=== PATIENT | female | born 1990 | race Caucasian/White ===

== ENCOUNTER 2018-01-24 04:39 | Inpatient (IN) ==
[2018-01-23 22:05] LABS: Bilirubin,Urine Negative (Negative); Blood,Urine Negative (Negative); Clarity,Urine Clear (Clear); Color,Urine Yellow (Yellow); Glucose,Urine (UA) Normal (Normal); Ketones,Urine Negative (Negative); Leukocyte Esterase,Urine Trace (Negative); Nitrite,Urine Negative (Negative); Protein,Urine Negative (Neg-Trace); Specific Gravity,Urine 1.012 (1.010-1.025); Urobilinogen,Urine Normal (Normal)
[2018-01-23 22:07] LABS: Bacteria,Urine None Seen per hpf (None-Few); Hyaline Casts,Urine None Seen per lpf (None-Few); RBC,Urine 0-3 per hpf (0-3); Squamous Epithelial Cell,Urine Many per lpf (None-Few)
[2018-01-23 22:14] LABS: Amphetamine Screen,Urine Negative ng/mL (Cutoff=1000); Barbiturate Screen,Urine Negative ng/mL (Cutoff=200); Benzodiazepines Screen,Urine Negative ng/mL (Cutoff=200); Cannabinoid Screen,Urine Negative ng/mL (Cutoff = 50); Cocaine Screen,Urine Negative ng/mL (Cutoff= 300); Opiate Screen,Urine Negative ng/mL (Cutoff=300); Phencyclidine Screen,Urine Negative ng/mL (Cutoff=25)
--- NOTE | 2018-01-24 00:30 | OB/GYN History & Physical ---
Date of Encounter: 01/24/18 Time of Encounter: 00:09 Assessment and Plan (1) 36 weeks gestation of Current visit: Yes Status: Acute (2) Breech presentation of fetus Current visit: Yes Status: Acute Upon making cervical change, patient found to be breech on ultrasound. Admit to labor and delivery for stat section Qualifiers: Fetus number: single or unspecified fetus Qualified Code(s): O32.1XX0 - Maternal care for breech presentation, not applicable or unspecified History of Present Illness Chief complaint: Contractions HPI: Ms. Martinez is a 27 year old female presented to triage with contractions. Contractions started this afternoon, reports good movement and bloody show , denies vaginal bleeding. On initial admission patient's cervix was closed, now 4 cm and found to be in breech presentation. care with Dr. Mazariegos. complicated with pica, found to be anemic. Patient with history of herpes, Otherwise uncomplicated course. Labs: O-, rubella and varicella immune, GBS unknown Past Med Surg Social Fam HX - Past Medical History Medical history: no medical history Additional medical history: herpes - anemia Psychiatric history: anxiety - Past Surgical History Surgical History: cholecystectomy Additional surgical history: dental - Social History Smoking Status: Never smoker Smokeless Tobacco Status: No Alcohol use: none Drug use: none - Family History Mother Living Status: Still Living Obstetrical History - Pregnancies : 4 Para: 3 Term: 1 : 2 Ab's: 0 Livin Medications and Allergies Ferrous Sulfate [Iron] 325 mg PO BID 01/23/18 [History] Vit #108/Iron/FA [ One Tablet] 1 each PO DAILY 01/23/18 [ History] 3 Allergy/AdvReac Type Severity Reaction Status Date / Time No Known Allergies Allergy Verified 01/23/18 21:49 Exam - Constitutional Constitutional: well developed, well nourished, no acute distress, average body habitus - Neck Neck exam: full ROM - Lungs Respiratory exam: CTAB - Cardiovascular Cardiovascular exam: RRR - Abdomen Abdomen: Present: gravid, non tender - Vulva Vulva: bilateral: normal - Vagina Vagina: Present: normal moisture - Cervix Dilation: 4 Station: -2 - Anus/Rectum Anus/Rectum: Present: normal perianal skin Results Abnormal lab results Ur Leukocyte Esterase Trace (Negative) H 01/23/18 21:45 Urine Microscopic WBC 3-5 per hpf (0-3) H 01/23/18 21:45 Ur Squamous Epith Cells Many per lpf (None-Few) H 01/23/18 21:45 Ur Culture Indicated? NO. (NO) A 01/23/18 21:45 All other labs normal. - VTE Reasons for not Prescribing Prophylaxis: Treatment not Indicated - Low risk for VTE
--- NOTE | 2018-01-24 00:38 | Anesthesia Evaluation PreOp ---
Date of Encounter: 01/24/18 Time of Encounter: 00:36 - Past History Planned Operation: csection/spinal Cardiac History: Denies any Significant Hx Pulmonary History: Denies Any Significant HX WASHING TUB OPERATOR History: Denies Any Significant HX Other Medical History: Denies Any Significant HX, Other (anemia) Anesthesia History: No Prior Anesthetic Complications, Past Anesthesia (lap jarrett, wisdom teeth) : Yes Alcohol Use: none Drug use: none Medications and Allergies Ferrous Sulfate [Iron] 325 mg PO BID 01/23/18 [History] Vit #108/Iron/FA [ One Tablet] 1 each PO DAILY 01/23/18 [ History] 3 Allergy/AdvReac Type Severity Reaction Status Date / Time No Known Allergies Allergy Verified 01/23/18 21:49 - Meds/Allergy Pre-op Review Medications Reviewed: Yes Allergies Reviewed: Yes Beta Blockers on Current Med List: No Anesthesia Exam BP 130/77 P 96 R 16 T 98.3 Height: 5'3" Weight: 103.5kg NPO (# of Hours): 5 Pain Scale: 4 Pain Scale Used: Numeric (1 - 10) - HEENT Pupil (Motor): Pupils equal Mallampati: II Teeth: Normal Oral Opening: Greater than 3 - WASHING TUB OPERATOR LOC: Oriented WASHING TUB OPERATOR Motor: Normal RUE, Normal LUE, Normal RLE, Normal LLE, Normal Face WASHING TUB OPERATOR Sensory: Normal: RUE, LUE, RLE, LLE, Face - Cardiac Rhythm: Regular Murmur: None JVD: No Carotid Bruit: No - Pulmonary Breath Sounds: bilateral Clear Respiratory Effort: Symmetrical Anesthesia Assess/Plan ASA Score: 2 Modified Sada Scale for Level of Consciousness: Cooperative, oriented, and tranquil Anesthetic Plan: Regional Autologous Blood: Yes Monitoring Plan: Standard Monitors Recovery Plan: PACU
[2018-01-24 00:46] LABS: Basophils % 0.3 %; Eosinophils # 0.1 K/mcL (0.0-0.6); Hematocrit 31.5 % (35.3-44.9); Hemoglobin 10.9 g/dL (11.5-15.4); Immature Granulocytes % 1.1 % (0-4); Lymphocytes # 1.8 K/mcL (0.6-4.6); Lymphocytes % 13.1 %; Mean Corpuscular HGB Conc 34.6 g/dL (31.6-35.5); Mean Corpuscular Hemoglobin 29.3 pg (28.0-33.3); Mean Corpuscular Volume 84.7 fL (83.0-100.0); Mean Platelet Volume 9.5 fL (9.4-12.4); Monocytes # 0.7 K/mcL (0.0-1.3); Neutrophils # 11.1 K/mcL (1.6-8.9); Nucleated Red Blood Cells 0.1 /100 WBC (0); Platelet Count 232 K/mcL (140-400); Red Blood Count 3.72 M/mcL (3.82-4.97); Red Cell Distribution Width 14.3 % (11.5-14.5); Segmented Neutrophils % 79.5 %
--- NOTE | 2018-01-24 01:57 | Anesthesia Procedures ---
Date of Encounter: 01/24/18 Time of Encounter: 01:20 Procedures: Anesthesia - Epidural/Spinal Patient ID/Chart reviewed: Yes Patient examined: Yes OB Eval: Gestational age: 36 OB Eval: : 4 OB Eval: Hx Para: 3 OB Eval: Dilated at (cm): 4 OB Eval: Contractions: Non-stressed pattern Consent Obtained: Yes Supplemental Oxygen: None/Room Air Site Prep: Aseptic Technique, Sterile prep and drape, Povidone-Iodine 1% Patient position: upright Local Anesthetic: Lidocaine 1% Amount of Local Anesthetic used: 3 Interspace Used: L4-L5 Blood: No CSF: Yes Paresthesia: No Spinal Needle Gauge: Other Spinal Dose: Bupivicaine 0.75% 1.6ml Morphine 250mcg Procedure: Intrathecal dose administered first pass in upright position without any immediate noted complications. VSS throughout. Vitals + FHT's: See anesthesia OR record
--- NOTE | 2018-01-24 02:40 | OB/GYN Procedure Note ---
Section - Date of procedure: 01/24/18 Preop diagnosis: breech Post-op diagnosis: same (Double footling breech) Procedure: primary low transverse Surgeon: Corey Garcia Blood Loss: 950 Was there an assistant manager retail present: No Anesthesiologist: Candace Parada Anesthesia Type: Spinal section complications: none Disposition: PACU Specimens: Placenta - Infant (s) A Infant Delivery Date: 01/24/18 Delivery Time: 01:43 Presentation: footling breech Gender: Female Viability: Viable Pounds: 6 Ounces: 6 at 1 minute: 9 at 5 minutes: 9 Specimens collected: cord blood Placenta: complete extraction - Narrative Narrative: Patient was taken to the operating room. After satisfactory spinal anesthesia was achieved, patient placed in supine position, Varner catheter inserted, and prepped and draped in usual manner. After appropriate timeout, the abdomen was entered through standard Maylard incision. The Wellington retractor was placed. The peritoneum overlying the lower uterine segment was incised in the U-shaped fashion. Uterine cavity was entered sharply and extended laterally. Membranes ruptured yielding clear fluid. Double footling breech was noted. The legs followed by the torso followed by the arms and head were delivered without difficulty. The umbilical cord was double clamped and cut and the was given to nursery staff for further evaluation. Placenta was removed. Uterus was closed with 0 Monocryl . After assurance of hemostasis, the retractor was removed. The abdomen was closed using a's 0 Vicryl on the fascia and a 3-0 Monocryl in the skin. Sterile dressing was applied. Patient did well was taken to recovery room in satisfactory condition. Counts were correct.
--- NOTE | 2018-01-24 03:42 | Anesthesia Evaluation Post Op ---
Date of Encounter: 01/24/18 Time of Encounter: 03:41 - Vital Signs Vital Signs: BP 126/51 P 95 R 16 T 97.9 - Lungs Lungs: Clear Ascult./Percussion - Airway Airway: Non-obstructed - Cardiovascular Regular Rate - Mental Status Mental Status: Alert & Oriented, Answers Appropriately - Pain Pain Scale: 5 (responding to IV and Oral medication as needed) Pain Scale used: Numeric (1 - 10) - Nausea Vomiting Nausea Vomiting: Not Present - Hydration Hydration: NPO, Varner catheter - Discharge PostOp Status: Transfer Patient to floor
[~2018-01-24 04:39] MED LIST: *HR* Meperidine 25 MG/ML SYRINGE IVP PRN; *HR* OxyCODONE Immed Rel 5 MG TABLET PO PRN; *HR* Oxytocin 10 UNIT/ML VIAL IM ONE; *HR* Promethazine 25 MG/ML VIAL IVP PRN; Acetaminophen IV 1,000 MG/100 ML INFUS..BTL IVPB ONE; Bupivacaine/PF 0.75% in Dex 2 ML AMPUL INFILT ONE; CeFAZolin Premix DUPLEX 2,000 MG/50 ML BAG IVPB ONE; Dexamethasone 4 MG/ML VIAL ONE; EPHEDrine 50 MG/ML VIAL ONE; Famotidine 20 MG/2 ML VIAL IVP ONE; Lidocaine -MPF 1% 5 ML AMPUL ONE; Metoclopramide 10 MG/2 ML VIAL IVP ONE; Morphine Sulfate/PF 5mg/10mL Vial ONE; Naloxone 0.4 MG/ML INJ IVP PRN; Ondansetron 4 MG/2 ML VIAL IVP ONE; Ondansetron 4 MG/2 ML VIAL ONE; Oxytocin 20 units/ LR 1000 mL 20 UNIT/1,000 ML BAG IVC ONE; Oxytocin 20 units/ LR 1000 mL 20 UNIT/1,000 ML BAG IVC SCH; Ringers Solution, Lactated 1,000 ML IVC ONE; Ringers Solution, Lactated 1,000 ML IVC SCH; Ringers Solution, Lactated 1,000 ML ONE
[2018-01-24] MEDS ORDERED: Oxytocin 20 units/ LR 1000 mL 20 UNIT/1,000 ML BAG IVC SCH (04:43)
[2018-01-24] MEDS ORDERED: Metoclopramide 10 MG/2 ML VIAL IVP PRN (04:43)
[2018-01-24] MEDS ORDERED: Acetaminophen 325 MG TABLET PO PRN (04:43)
[2018-01-24] MEDS ORDERED: Rho Immune Globulin 1,500 UNIT SYRINGE IM ONE (04:43)
[2018-01-24] MEDS ORDERED: Sennosides 8.6 MG TABLET PO PRN (04:43)
[2018-01-24] MEDS ORDERED: Ondansetron 4 MG/2 ML VIAL IVP PRN (04:43)
[2018-01-24] MEDS ORDERED: Simethicone 80 MG TAB.CHEW PO PRN (04:43)
[2018-01-24] MEDS: Prenatal Vit/FA 1 EACH TABLET PO SCH (08:06)
[2018-01-24] MEDS ORDERED: Prenatal Vit/FA 1 EACH TABLET PO SCH (09:00)
[2018-01-24] MEDS: *HR* OxyCODONE/APAP 5/325 TABLET PO PRN ×2 (14:14→19:57)
[2018-01-24] MEDS: Ibuprofen 600 MG TABLET PO PRN ×2 (16:06→23:50)
[2018-01-25] MEDS: *HR* OxyCODONE/APAP 5/325 TABLET PO PRN ×2 (05:41→15:21)
[2018-01-25 06:41] LABS: Basophils # 0.1 K/mcL (0.0-0.2); Basophils % 0.4 %; Eosinophils # 0.3 K/mcL (0.0-0.6); Eosinophils % 2.1 %; Hematocrit 26.2 % (35.3-44.9); Hemoglobin 8.6 g/dL (11.5-15.4); Immature Granulocytes % 1.6 % (0-4); Lymphocytes # 2.3 K/mcL (0.6-4.6); Lymphocytes % 19.1 %; Mean Corpuscular HGB Conc 32.8 g/dL (31.6-35.5); Mean Corpuscular Hemoglobin 28.5 pg (28.0-33.3); Mean Corpuscular Volume 86.8 fL (83.0-100.0); Mean Platelet Volume 9.2 fL (9.4-12.4); Monocytes # 0.6 K/mcL (0.0-1.3); Monocytes % 5.2 %; Neutrophils # 8.6 K/mcL (1.6-8.9); Platelet Count 201 K/mcL (140-400); Red Blood Count 3.02 M/mcL (3.82-4.97); Red Cell Distribution Width 14.6 % (11.5-14.5); Segmented Neutrophils % 71.6 %
[2018-01-25] MEDS: Prenatal Vit/FA 1 EACH TABLET PO SCH (08:37)
[2018-01-25] MEDS: Ibuprofen 600 MG TABLET PO PRN ×2 (08:37→19:34)
--- NOTE | 2018-01-25 10:16 | OB/GYN Progress Note ---
Date of Encounter: 01/25/18 Time of Encounter: 10:13 - Assessment and Plan (1) Status post primary low transverse section Current Visit: Yes Status: Acute Pain well controlled with by mouth pain meds Continue routine care Anticipate discharge home tomorrow (2) anemia Current Visit: Yes Status: Acute Increase iron to twice daily (3) Breast feeding status of mother Current Visit: Yes Status: Acute as needed Subjective - Subjective Principal diagnosis: s/p PLTCS for breech Patient reports: appetite normal, voiding normally, pain well controlled, ambulating normally : doing well, nursing well Objective - Vital Signs Latest vital signs: Vital Signs Temp Pulse Resp BP Pulse Ox 01/25/18 07:30 97.9 F 86 16 114/80 01/24/18 23:35 97.6 F 88 14 108/68 98 01/24/18 19:20 98.1 F 88 16 112/74 97 01/24/18 16:23 97.8 F 82 20 113/74 01/24/18 11:37 98.1 F 91 16 112/76 Intake and Output 01/24/18 01/25/18 01/25/18 23:59 07:59 15:59 Intake Total 900 / 900 240 / 240 Output Total 1275 / 1275 1150 / 1150 Balance -1275 / -1275 -250 / -250 240 / 240 Intake: Oral 900 / 900 240 / 240 Output: Urine 1275 / 1275 1150 / 1150 Other: Meal Breakfast Percent of Meal Consumed 100% Weight 103 kg Patient Weight 01/25/18 23:59 Weight 103 kg - Exam Lungs: bilateral: normal Chest: Normal S1, Normal S2 Extremities: Present: normal Abdomen: Present: normal appearance, soft, gravid Incision: Present: normal, dry, dressed Uterus: Present: normal, firm Fundal Height: 0 (midline) - Labs Labs: Laboratory Results - last 24 hr 01/24/18 01/25/18 03:14 06:23 WBC 12.0 H RBC 3.02 L Hgb 8.6 L D Hct 26.2 L MCV 86.8 MCH 28.5 MCHC 32.8 RDW 14.6 H Plt Count 201 MPV 9.2 L Immature Gran % 1.6 Seg Neutrophils % 71.6 Lymphocytes % 19.1 Monocytes % 5.2 Eosinophils % 2.1 Basophils % 0.4 Neutrophils # 8.6 Lymphocytes # 2.3 Monocytes # 0.6 Eosinophils # 0.3 Basophils # 0.1 Rhogam Indicated NO
[2018-01-26] MEDS: *HR* OxyCODONE/APAP 5/325 TABLET PO PRN (07:00)
[2018-01-26 07:43] VITALS: BP 125/83
--- NOTE | 2018-01-26 08:19 | Discharge Summary ---
Date of Encounter: 01/26/18 Time of Encounter: 08:16 - Discharge Diagnosis (1) Status post primary low transverse section Priority: Primary Status: Acute Comments: Pain well controlled with by mouth pain meds Tolerating regular diet Voiding independently Passing flatus, but no BM yet Lochia light Vital signs stable Ambulating independently Discharge home today (2) anemia Priority: Secondary Status: Acute Comments: Continue iron twice daily (3) Breast feeding status of mother Priority: Secondary Status: Acute Comments: resources provided - Discharge Medications Prescriptions: OxyCODONE/APAP 5/325 [Percocet 5/325 MG] 1 each PO Q4HR PRN 5 Days #30 tablet PRN Reason: Moderate pain 4-6 Ibuprofen [Motrin] 600 mg PO Q6HR PRN #30 tablet PRN Reason: Cramping Docusate [Colace] 100 mg PO BID #60 capsule Ferrous Sulfate [Iron] 325 mg PO BID #60 tablet Home Medications: Vit #108/Iron/FA [ One Tablet] 1 each PO DAILY 01/23/18 [ History] Acetaminophen [Tylenol] 325 mg PO Q6HR PRN tablet 01/26/18 [Rx] Docusate [Colace] 100 mg PO BID #60 capsule 01/26/18 [Rx] Ferrous Sulfate [Iron] 325 mg PO BID #60 tablet 01/26/18 [Rx] Ibuprofen [Motrin] 600 mg PO Q6HR PRN #30 tablet 01/26/18 [Rx] OxyCODONE/APAP 5/325 [Percocet 5/325 MG] 1 each PO Q4HR PRN 5 Days #30 tablet [Rx] Simethicone [Gas-X] 80 mg PO TID PRN tab.chew 01/26/18 [Rx] Allergies/Adverse Reactions: 3 Allergy/AdvReac Type Severity Reaction Status Date / Time No Known Allergies Allergy Verified 01/23/18 21:49 Data Procedures and tests throughout hospitalization: Laboratory Tests 01/23/18 01/23/18 01/24/18 21:45 21:45 00:20 WBC 13.9 H RBC 3.72 L Hgb 10.9 L Hct 31.5 L MCV 84.7 MCH 29.3 MCHC 34.6 RDW 14.3 Plt Count 232 MPV 9.5 Immature Gran % 1.1 Seg Neutrophils % 79.5 Lymphocytes % 13.1 Monocytes % 5.0 Eosinophils % 1.0 Basophils % 0.3 Neutrophils # 11.1 H Lymphocytes # 1.8 Monocytes # 0.7 Eosinophils # 0.1 Basophils # 0.0 Nucleated RBCs/100 WBC 0.1 H Urine Color Yellow Urine Clarity Clear Urine pH 7.0 Ur Specific [place] 1.012 Urine Protein Negative Urine Glucose (UA) Normal Urine Ketones Negative Urine Blood Negative Urine Nitrite Negative Urine Bilirubin Negative Urine Urobilinogen Normal Ur Leukocyte Esterase Trace H Urine Microscopic RBC 0-3 Urine Microscopic WBC 3-5 H Ur Squamous Epith Cells Many H Urine Bacteria None Seen Hyaline Casts None Seen Ur Culture Indicated? NO. A Urine Opiates Screen Negative Ur Barbiturates Screen Negative Ur Phencyclidine Scrn Negative Ur Amphetamines Screen Negative U Benzodiazepines Scrn Negative Urine Cocaine Screen Negative U Marijuana (THC) Screen Negative Ur Drug Screen Interp See Below Blood Type Antibody Screen Antibody Identification Baby's Blood Type Mother's Blood Type Rhogam Indicated 01/24/18 01/24/18 01/25/18 00:20 03:14 06:23 WBC 12.0 H RBC 3.02 L Hgb 8.6 L D Hct 26.2 L MCV 86.8 MCH 28.5 MCHC 32.8 RDW 14.6 H Plt Count 201 MPV 9.2 L Immature Gran % 1.6 Seg Neutrophils % 71.6 Lymphocytes % 19.1 Monocytes % 5.2 Eosinophils % 2.1 Basophils % 0.4 Neutrophils # 8.6 Lymphocytes # 2.3 Monocytes # 0.6 Eosinophils # 0.3 Basophils # 0.1 Nucleated RBCs/100 WBC Urine Color Urine Clarity Urine pH Ur Specific [place] Urine Protein Urine Glucose (UA) Urine Ketones Urine Blood Urine Nitrite Urine Bilirubin Urine Urobilinogen Ur Leukocyte Esterase Urine Microscopic RBC Urine Microscopic WBC Ur Squamous Epith Cells Urine Bacteria Hyaline Casts Ur Culture Indicated? Urine Opiates Screen Ur Barbiturates Screen Ur Phencyclidine Scrn Ur Amphetamines Screen U Benzodiazepines Scrn Urine Cocaine Screen U Marijuana (THC) Screen Ur Drug Screen Interp Blood Type O NEGATIVE Antibody Screen POSITIVE Antibody Identification Anti-D Due to Rhogam Baby's Blood Type O RH NEGATIVE Mother's Blood Type O RH NEGATIVE Rhogam Indicated NO Date of admission: 01/24/18 09:31 Primary care physician: PCP NONE Discharging clinician: Yasmine Albarran Anticipated date of discharge: 01/26/18 - Patient Status Disposition: Home, Self-Care Condition: Good Functional capacity at discharge: independent ambulation Overall status at discharge: patient is progressing back to baseline - Discharge Instructions Follow Up With: NONE,PCP [Primary Care Provider] - Segun Hernandez MD [Partnered Physician] - - Diet and Activity Activity: increase activity as tolerated Diet: regular diet Hospital Course Reason for admission: active labor, IUP at term, other (breech presentation) Delivery: section Episiotomy: none Laceration: none Other procedures: none complications: none Discharge diagnosis: IUP at term delivered [place] baby: female Time Attestation: Total time spent providing and/or coordinating discharge services: Time Spent: Less than 30 minutes - VTE Reasons for not Prescribing Prophylaxis: Treatment not Indicated - Low risk for VTE Documentation of Mechanical Device: Intermittent pneumatic compression device Exam - Constitutional Vitals: Temp Pulse Resp BP Pulse Ox 97.9 F 80 16 125/83 100 01/26/18 07:42 01/26/18 07:42 01/26/18 07:42 01/26/18 07:42 01/25/18 19:46 General appearance IM: A&O X 3 - Respiratory Respiratory exam: Present: CTAB - Cardiovascular Cardiovascular exam IM: Present: RRR, +S1, +S2 - GI/Abdominal GI/Abdominal exam IM: normal bowel sounds, no peritoneal signs Incision: normal, dry, intact - Rectal Rectal exam: deferred - Uterine Tone: Firm Uterus Position: At Umbilicus, Midline - Extremities Exam Extremities exam IM: Present: normal capillary refill, normal inspection, radial pulses palpable and symmetrical - Neurological Exam Neurological exam: alert, CN II-XII intact, normal gait, oriented X3, reflexes normal, no focal deficits, strengths equal and symetr throughout - Psychiatric Additional comments: Signs and symptoms of depression discussed with patient and partner both verbalize understanding of when to call for help - Other Additional findings: Breasts: Soft, nontender. Nipples intact without erythema.
[2018-01-26] MEDS: Prenatal Vit/FA 1 EACH TABLET PO SCH (09:04)
[2018-01-26] MEDS: Ibuprofen 600 MG TABLET PO PRN (09:13)
== END 2018-01-26 12:00 | disposition home or self-care (01) | DRG 540 ==
LOC: 1NENULAB → 1NENUOBS 04:39
PROVIDERS: ADMIT Obstetrics & Gynecology; ATTEND Obstetrics & Gynecology